=== PATIENT | male | born 1960 | race Two or more races ===

== ENCOUNTER 2018-03-19 08:58 | Emergency (ER) | payer SELFPAY ==
[~2018-03-19] VITALS: Ht 160 cm; Wt 70.0 kg
--- NOTE | 2018-03-19 09:36 | NUR ---
[id number] PHYSICIAN OFFICE CLIN ASST.
[2018-03-19] MEDS ORDERED: SODIUM CHLORIDE 0.9% 1,000ML IVBOLUS ONE (10:00)
[2018-03-19 10:01] LABS: PH, VENOUS 7.351 pH (7.320-7.420)
[2018-03-19 10:03] LABS: FIO2 ROOM AIR %
[2018-03-19 10:08] LABS: BASOPHILS # (AUTO) 0.03 x10^3/uL (0-0.1); BASOPHILS % (AUTO) 1 % (0-1); EOSINOPHILS # (AUTO) 0.09 x10^3/uL (0-0.4); EOSINOPHILS % (AUTO) 2 % (1-7); LYMPHOCYTES # (AUTO) 1.21 x10^3/uL (1-3.4); LYMPHOCYTES % (AUTO) 22 % (22-44); MD NO; MEAN CORPUSCULAR HEMOGLOBIN 31.8 pg (27.5-34.5); MEAN CORPUSCULAR HGB CONC 34.3 g/dL (33.2-36.2); MEAN CORPUSCULAR VOLUME 92.7 fL (81-97); MONOCYTES # (AUTO) 0.23 x10^3/uL (0.2-0.8); MONOCYTES % (AUTO) 4 % (2-9); NEUTROPHILS # (AUTO) 3.88 x10^3/uL (1.8-6.8); NEUTROPHILS % (AUTO) 71 % (42-75); PLATELET COUNT 143 x10^3/uL (130-400); RED BLOOD COUNT 5.11 x10^6/uL (4.38-5.82); RED CELL DISTRIBUTION WIDTH 13.4 % (9.4-14.8)
[2018-03-19 10:15] LABS: ALANINE AMINOTRANSFERASE 70 U/L (12-78); ANION GAP 9 mmol/L (5-15); CALCIUM 8.8 mg/dL (8.5-10.1); CHLORIDE 98 mmol/L (98-107)
[2018-03-19 10:17] LABS: ALKALINE PHOSPHATASE 111 U/L (45-117); BILIRUBIN,TOTAL 0.7 mg/dL (0.2-1.0); CREATININE 1.16 mg/dL (0.7-1.3); TOTAL PROTEIN 8.4 g/dL (6.4-8.2)
[2018-03-19 10:25] LABS: HEMOGLOBIN A1C 11.6 % (4.2-6.3)
[2018-03-19 10:40] LABS: ACETONE, SERUM Small (20mg/dL) mg/dL (Negative)
[2018-03-19 11:20] VITALS: BP 142/84
[2018-03-19 11:29] LABS: CULTURE INDICATED? NO; MICROSCOPIC NOT IND
== END 2018-03-19 11:27 | disposition home or self-care (01) ==
LOC: ED 11:24
DX: E11.65 Type 2 diabetes mellitus with hyperglycemia (principal)
CPT/HCPCS: 36415; 80053; 81003; 82010; 82803; 82962; 83036; 83930; 85025; 93005; 96360; 99284; J7030